=== PATIENT | female | born 1940 | race Caucasian/White ===

== ENCOUNTER 2019-08-22 06:49 | Day surgery (SDC) | payer MEDICARE ==
[~2019-08-22 06:49] MED LIST: FAMOTIDINE 20MG TABLET PO ONE; GENTAMICIN SULFATE IV ONE; MECLIZINE 25 MG TABLET PO ONE; METOCLOPRAMIDE 10 MG TABLET PO ONE; SODIUM CHLORIDE 0.9% IV ONE; VANCOMYCIN 1GM/200ML PREMIX 1 GM/200 ML PIGGYBACK IVPB ONE
[2019-08-22] MEDS ORDERED: HYDROMORPHONE HCL 2 MG/ML VIAL IV ONE (06:50)
[2019-08-22] MEDS ORDERED: 0.9 % SODIUM CHLORIDE 100ML 100 ML IV ONE (06:50)
[2019-08-22] MEDS ORDERED: ROCURONIUM BROMIDE 50MG/5ML VIAL IV ONE (06:50)
[2019-08-22] MEDS ORDERED: FENTANYL PF 100MCG/2ML VIAL IV ONE (06:50)
[2019-08-22] MEDS ORDERED: PROPOFOL 10 MG/ML VIAL IV ONE (06:50)
[2019-08-22] MEDS ORDERED: ONDANSETRON HCL IV 4 MG/2 ML VIAL IVP ONE (06:50)
[2019-08-22] MEDS ORDERED: SUCCINYLCHOLINE 20 MG/ML 10ML IVP ONE (06:50)
[2019-08-22] MEDS ORDERED: MIDAZOLAM HCL 2MG/2ML VIAL IV ONE (06:50)
[2019-08-22] MEDS ORDERED: DEXAMETHASONE 4 MG/ML 1ML VIAL IVP ONE (06:50)
[2019-08-22] MEDS ORDERED: LIDOCAINE 2% MDV (20MG/ML) 20ML VIAL IV ONE (06:50)
[2019-08-22 07:21] LABS: INR 2.5; PROTHROMBIN TIME (PATIENT) 24.8 SECONDS (9.5-12.1)
[2019-08-22 07:52] LABS: ABO GROUP A; ANTIBODY SCREEN NEGATIVE (NEGATIVE); RH TYPE POSITIVE
[2019-08-22] MEDS ORDERED: RINGERS SOLUTION,LACTATED 1,000 ML IV ONE ×2 (08:00→09:42)
[2019-08-22] MEDS ORDERED: BUPIVACAINE 0.5% W/EPI MPF 30 ML VIAL IU ONE (09:42)
[2019-08-22] MEDS ORDERED: TRANEXAMIC ACID 1,000 MG/10 ML ML IU ONE (09:43)
[2019-08-22] MEDS ORDERED: TRANEXAMIC ACID 1,000 MG/10 ML ML IV ONE (09:43)
[2019-08-22] MEDS ORDERED: TRAMADOL HCL 50 MG TABLET PO PRN (10:48)
[2019-08-22] MEDS ORDERED: ACETAMINOPHEN W/ CODEINE 300MG/60MG TABLET PO PRN ×2 (10:48)
[2019-08-22] MEDS ORDERED: ACETAMINOPHEN 325 MG TAB PO PRN (10:48)
[2019-08-22] MEDS ORDERED: DIPHENHYDRAMINE HCL 25 MG CAPSULE PO PRN (10:48)
[2019-08-22] MEDS ORDERED: BISACODYL 10 MG SUPP RC PRN (10:48)
[2019-08-22] MEDS ORDERED: HYDROMORPHONE HCL 2 MG/ML VIAL IM PRN (10:48)
[2019-08-22] MEDS ORDERED: HYDROCODONE/APAP 10/325 TABLET PO PRN (10:48)
[2019-08-22] MEDS ORDERED: ONDANSETRON HCL IV 4 MG/2 ML VIAL IVP PRN (10:48)
[2019-08-22] MEDS ORDERED: NALOXONE 0.4 MG/1 ML VIAL IVP PRN (10:48)
[2019-08-22] MEDS ORDERED: MAGNESIUM HYDROXIDE 30 ML UDC PO PRN (10:48)
[2019-08-22] MEDS ORDERED: ZOLPIDEM TARTRATE 5 MG TABLET PO PRN (10:48)
[2019-08-22] MEDS ORDERED: AL HYDROX/MAG HYDROX 30ML UD PO PRN (10:48)
[2019-08-22] MEDS: HYDROMORPHONE HCL 2 MG/ML VIAL IM PRN ×2 (11:35→11:50)
--- NOTE | 2019-08-22 15:15 | Rehab Evaluation ---
Patient Information - Patient Information Diagnosis: L knee DJD Ordered Treatment: PT Evaluate and Treat Status: Initial Evaluation Surgery: Yes (L TKA) Date of Surgery: 08/22/19 Past Medical/Surgical Hx: PAST MEDICAL/SURGICAL HISTORY Past Surgical History BILAT CATARACTS LEFT EYE SX BILAT CTR C SCOPES PMH - Respiratory Hx Respiratory Disorders Yes Hx Bronchitis Yes Hx Pneumonia Yes: Hx Sleep Apnea Yes Hx of CPAP Yes: BIPAP PT INSTRUCTED TO BRING TO THE HOSPITAL WITH HER Hx of URI Yes: Hx of SOB Yes: WITH A FIB PMH - Cardiovascular Hx Cardiovascular Disorders Yes Hx Abnormal EKG Yes Hx Hypertension Yes: CONTROLLED WITH MEDS Hx Irregular Heartbeat Yes: PAF ON COUMADIN Hx Heart Murmur Yes Exercise Tolerance Poor PMH - Neuro Hx Neurological Disorders Yes Hx Dizziness Yes: LIGHTHEADED BALANCE OFF AT TIMES Hx Neuropathy Yes: FEET Hx Weakness Yes: KNEES PMH - GI Hx Gastrointestinal Disorders Yes Hx Diverticulitis Yes PMH - Hx Genitourinary Disorders No PMH - Endocrine Hx Endocrine Disorders Yes Hx Diabetes Yes: DX'D 2009 Hx of NIDDM Yes Comment: BLOOD SUGARS 140'S PMH - Musculoskeletal Hx Musculoskeletal Disorders Yes Hx Arthritis Yes: KNEES, HANDS PMH - Psych Hx Psychiatric Problems Yes Hx Depression Yes: MILD CONTROLLED WITH MEDS PMH - Hematology/Oncology Hx Hematology/Oncology Yes Disorders Hx Anemia Yes: GETS IRON INFUSIONS A COUPLE OF TIMES A YR UNKNOWN ETIOLOGY Premorbid Status: Detail (The patient was independent with all mobility prior to surgery.) Social History: Detail (The patient lives with spouse in a one story house with a finished basement with 4 steps at the enterance. The bathroom is equipped with a walk in shower, hand held shower, elevated toilet. Grab bars were present in walk in shower but not by toilet. The patient has a walker with wheels.) Precautions: [place], Fall, Other (WBAT on the L LE.) - Time With Patient Total Time Spent With Patient (Min): 30 Treatment Procedures: Detail (Initial Evaluation) Subjective Information - Subjective Information Per Patient (The patient had complaints of L knee pain but did not rate pain using 0-10 pain scale.) Objective Data - Mental Status Patient Orientation: Oriented x3 - Visual Perception Appears within normal limits for therapeutic activities - ROM Not within normal limits (The patient's L knee AROM is limited s/p surgery. All other LE AROM is WNL.) - Strength/Tone Other (The patient's LE strength was not tested s/p surgery however strength was functional.) - Bed Mobility Independent (The patient was independent with supine to and from sit.) - Transfers Independent (The patient initially required min PA of 2 with sit to stand but wa s able to acheive sit to stand independently from commode. The patient required maximal verbal cues to reach back for commode and to push up from the surface. The patient transferred to commode with CG of 1.) - Balance Balance Sitting: Good Balance Standing: Good - Gait Detail (Due to unsteadiness of L LE the patient did ambulate a distance. The patient took one to two steps with use of wheeled walker WBAT on the L LE to and from commode.) Therapy Assessment - Therapy Assessment Detail (The patient was independent with bed mobility and required CG and verbal cues for transfers. The patient ambulated minimally due to unsteadines of L LE. Patient is to ambulate with nursing staff this pm. Will see pt. for one to two sessions for completion of inpt. PT goals.) Problem List - Problem List Physical Therapy Problem List: Detail (Decreased L knee AROM and L LE strength) Goals - Goals Physical Therapy Goals: 1) The patient will be independent with sit to and from stand transfer without verbal cues for safety. 2) The patient will ambulate with front wheeled walker household distances WBAT on L LE independently. 3)The patient will ambulate on stairs with supervison using proper technique. 4) The patient will be independent with TKA HEP. Plan - Plan Physical Therapy Plan: PT 1-2 sessions for gait training on levels and stairs.
--- NOTE | 2019-08-22 15:23 | Rehab Evaluation ---
Patient Information - Patient Information Diagnosis: L knee DJD Ordered Treatment: OT Evaluate and Treat Status: Initial Evaluation Surgery: Yes (L TKA) Date of Surgery: 08/22/19 Past Medical/Surgical Hx: PAST MEDICAL/SURGICAL HISTORY Past Surgical History BILAT CATARACTS LEFT EYE SX BILAT CTR C SCOPES PMH - Respiratory Hx Respiratory Disorders Yes Hx Bronchitis Yes Hx Pneumonia Yes: Hx Sleep Apnea Yes Hx of CPAP Yes: BIPAP PT INSTRUCTED TO BRING TO THE HOSPITAL WITH HER Hx of URI Yes: Hx of SOB Yes: WITH A FIB PMH - Cardiovascular Hx Cardiovascular Disorders Yes Hx Abnormal EKG Yes Hx Hypertension Yes: CONTROLLED WITH MEDS Hx Irregular Heartbeat Yes: PAF ON COUMADIN Hx Heart Murmur Yes Exercise Tolerance Poor PMH - Neuro Hx Neurological Disorders Yes Hx Dizziness Yes: LIGHTHEADED BALANCE OFF AT TIMES Hx Neuropathy Yes: FEET Hx Weakness Yes: KNEES PMH - GI Hx Gastrointestinal Disorders Yes Hx Diverticulitis Yes PMH - Hx Genitourinary Disorders No PMH - Endocrine Hx Endocrine Disorders Yes Hx Diabetes Yes: DX'D 2009 Hx of NIDDM Yes Comment: BLOOD SUGARS 140'S PMH - Musculoskeletal Hx Musculoskeletal Disorders Yes Hx Arthritis Yes: KNEES, HANDS PMH - Psych Hx Psychiatric Problems Yes Hx Depression Yes: MILD CONTROLLED WITH MEDS PMH - Hematology/Oncology Hx Hematology/Oncology Yes Disorders Hx Anemia Yes: GETS IRON INFUSIONS A COUPLE OF TIMES A YR UNKNOWN ETIOLOGY Premorbid Status: Detail (The patient was independent with all ADLs and fxl mobility prior to surgery and was occasionally using a FWW.) Social History: Detail (The patient lives with spouse in a one story house with a finished basement and 4 steps at the entrance with wide bilateral hand rails. Her bedroom and bath are on the main level and she has a chair lift to the downstairs. The bathroom is equipped with a walk in shower, hand held shower, elevated toilet. Grab bars are present in walk in shower but not by toilet. The patient has 2 front wheeled walkers.) Precautions: [place], Fall, Other (WBAT on the L LE.) - Time With Patient Total Time Spent With Patient (Min): 42 (partial co-eval w/ PT d/t Pt's current low fxl endurance and for Pt's safety d/t unclear TF status s/p L TKA) Treatment Procedures: Detail (1 OT eval, 1 self-care) Subjective Information - Subjective Information Per Patient (Pt states, "my will help me when I get home.") Objective Data - Pain Pain Present: Yes Pain Scale Used: Numeric (1 - 10) (3/10 during fxl mvmt, subsides w/ rest) - Mental Status Patient Orientation: Oriented x3 - Visual Perception Appears within normal limits for therapeutic activities - ROM Within normal limits (B UEs) - Strength/Tone Within normal limits (B UEs) - Coordination Appears within normal limits for therapeutic activities - Bed Mobility Needs Assist (supine to/from EOB w/ MIN assist of 1) - Transfers Needs Assist (MIN assist of 2 for stand pivot TF EOB to/from BSC, Pt able to take small steps with bilat support on walker, unsteady) - Balance Balance Sitting: Fair Balance Standing: Fair - Sensation Intact - Gait Detail (stand pivot only this sessions, see TFs) - ADL's/IADL's Detail (MAX assist to don/doff socks elevated HOB in supine d/t knee pain w/ reaching to feet; MAX assist to pull briefs to/from knee level in standing while Pt bilat support on walker and MIN assist for static standing; assist for gown mgmt throughout session. Educated and demo'd use of sock aide and cooperative education director to don/doff socks and pants, Pt verbalized understanding. Also explained safe FWW use and provided handouts for modified dressing and safe walker use.) Therapy Assessment - Therapy Assessment Detail (Pt currently requiring assist for all ADLs and fxl TFs. Will benefit from further OT to practice and assess safety and independence w/ ADLs prior to return home w/ spouse.) Patient Education - Patient Education Teaching Topic: Equipment Use, Other (modified safety and dressing techniques, walker use, etc.) Response: Return Demonstration, Reinforcement Needed, Verbalize Understanding Teaching Method: Discussion, Demonstration Teaching Recipient: Patient, Family Barriers To Learning: None Problem List - Problem List Occupational Therapy Problem List: Detail (1. Pt requires MAX assist for LB dressing 2. Pt requires MIN assist for stand pivot TFs 3. Pt demos decreased general safety awareness and use of FWW) Goals - Goals Occupational Therapy Goals: 1. Pt will be MOD I for LB dressing vs. spouse will demo ability to assist Pt as needed for LB dressing. 2. Pt will demo safety and MOD I with fxl mob to bathroom 3. Pt will demo safety awareness grossly incl. w/ use of FWW. Prognosis - Prognosis Good Plan - Plan Occupational Therapy Plan: Pt may benefit from 1 more OT session pending functional progress to address goals.
[2019-08-22] MEDS: METFORMIN 500 MG TABLET PO SCH ×2 (15:38→22:54)
[2019-08-22] MEDS: HYDROCODONE/APAP 10/325 TABLET PO PRN ×2 (15:39→19:15)
[2019-08-22] MEDS: PRAMIPEXOLE DI-HCL 0.25 MG TABLET PO SCH ×2 (19:10→22:40)
[2019-08-22] MEDS: VANCOMYCIN 1GM/200ML PREMIX 1 GM/200 ML PIGGYBACK IVPB SCH (21:00)
[2019-08-22] MEDS ORDERED: FUROSEMIDE 20 MG TABLET PO SCH (22:00)
[2019-08-22] MEDS ORDERED: SIMVASTATIN 10MG TABLET PO SCH (22:00)
[2019-08-22] MEDS ORDERED: WARFARIN 5 MG TAB PO SCH (22:00)
[2019-08-22] MEDS ORDERED: LOSARTAN POTASSIUM 25 MG TABLET PO SCH (22:00)
[2019-08-22] MEDS: OPTH OPTH SCH ×2 (22:52)
[2019-08-22] MEDS: COMBIGAN OPTH SCH (22:52)
[2019-08-22] MEDS: PATANOL 0.1% OPTH SCH (22:52)
[2019-08-22] MEDS: POTASSIUM CHLORIDE/D5-0.9%NACL 20 MEQ/1,000 ML BAG IV SCH (22:52)
[2019-08-22] MEDS: SYSTANE OPTH OPTH SCH (22:52)
[2019-08-22] MEDS: DOCUSATE SODIUM 100 MG CAPSULE PO SCH (22:55)
[2019-08-22] MEDS: GLIMEPIRIDE 2 MG TABLET PO SCH (22:58)
[2019-08-23] MEDS: HYDROCODONE/APAP 10/325 TABLET PO PRN ×3 (01:09→11:49)
[2019-08-23 06:43] LABS: HEMATOCRIT 34.3 % (35.0-47.0); HEMOGLOBIN 9.9 gm/dl (11.6-16.0)
[2019-08-23 06:55] LABS: INR 3.3; PROTHROMBIN TIME (PATIENT) 32.1 SECONDS (9.5-12.1)
[2019-08-23] MEDS ORDERED: PANTOPRAZOLE SODIUM 40 MG TABLET PO SCH (07:00)
[2019-08-23 07:03] LABS: BLOOD UREA NITROGEN 10 mg/dL (8-23); CREATININE 0.6 mg/dL (0.5-0.9); EST GLOMERULAR FILTRATION RATE > 60 mL/min; GLUCOSE,RANDOM 213 mg/dL (74-109)
--- NOTE | 2019-08-23 08:19 | Occupational Therapy Tx Note ---
Occupational Therapy Tx Note - Treatment Note Tolerated: Good Total Time Spent With Patient: 20 (ADL) Occupational Therapy Treatment Note: Detail (S: Pt up in chair, feeling better today. O: Reviewed modified LE dressing techniques and pt was able to demonstrate donning of cassandra sock (with assist, pants and slip on shoes). Reviewed kitchen and shower safety and modifications, pt verbalized understanding. Pt amb 5 feet to chair with walker and supervision. A: Pt is Ind with modified LE dressing techniques) Occupational Therapy Problem List: Detail (1. Pt requires MAX assist for LB dressing 2. Pt requires MIN assist for stand pivot TFs 3. Pt demos decreased general safety awareness and use of FWW) Occupational Therapy Goals: Goals met: 1. Pt will be MOD I for LB dressing vs. spouse will demo ability to assist Pt as needed for LB dressing. 2. Pt will demo safety and MOD I with fxl mob to bathroom 3. Pt will demo safety awareness grossly incl. w/ use of FWW. Prognosis: Good Occupational Therapy Plan: Pt is discharged from IP OT at this time. Thank you for this referral.
[2019-08-23] MEDS: VANCOMYCIN 1GM/200ML PREMIX 1 GM/200 ML PIGGYBACK IVPB SCH (08:39)
[2019-08-23] MEDS: METFORMIN 500 MG TABLET PO SCH (09:59)
[2019-08-23] MEDS ORDERED: DILTIAZEM 180MG CR CAPSULE PO SCH (10:00)
[2019-08-23] MEDS ORDERED: FERROUS SULFATE 325 MG TAB PO SCH (10:00)
[2019-08-23] MEDS ORDERED: POTASSIUM CHLORIDE 10 MEQ TAB PO SCH (10:00)
[2019-08-23] MEDS ORDERED: PAROXETINE HCL 10 MG TABLET PO SCH (10:00)
[2019-08-23] MEDS: GLIMEPIRIDE 2 MG TABLET PO SCH (10:00)
[2019-08-23] MEDS: DOCUSATE SODIUM 100 MG CAPSULE PO SCH (10:01)
[2019-08-23] MEDS: PRAMIPEXOLE DI-HCL 0.25 MG TABLET PO SCH (10:03)
[2019-08-23] MEDS: OPTH OPTH SCH ×2 (10:08→10:10)
[2019-08-23] MEDS: COMBIGAN OPTH SCH (10:08)
[2019-08-23] MEDS: SYSTANE OPTH OPTH SCH (10:10)
[2019-08-23] MEDS: PATANOL 0.1% OPTH SCH (10:10)
[2019-08-23] MEDS: POTASSIUM CHLORIDE/D5-0.9%NACL 20 MEQ/1,000 ML BAG IV SCH ×2 (10:12→10:13)
--- NOTE | 2019-08-23 11:08 | Physical Therapy Tx Note ---
Physical Therapy Tx Note - Treatment Note Tolerated: Good Total Time Spent With Patient: 35 Physical Therapy Tx Note: Detail (Patient was seated in bathroom upon FUEL CELL BINDER arrival. Patient required min assist with sit to stand transfer from toilet. Patient states her toilets are elevated at her home. Patient ambulated 240 feet with wheeled walker SBA x1. Patient descended and ascended 3 steps with using stairwell railing and walker. Patient donned shirt independently while standing at walker. Patient transferred stand to and from sit SBA x1. Patient ambulated 5 feet with wheeled walker. Patient transferred stand to sit SBA x1. Patient transferred sit to supine independently. Patient scooted over in bed independently. Patient performed the following exercises supine in bed x5-10 reps each: quad sets, glut squeezes, ankle pumps, heel slides, SLR, and hamst ring sets. Patient tolerated treatment well. Patient displays good understanding of ambulation with walker, stair climbing, and HEP. Patient was left reclined in bed with call light within reach. Patient discharged from inpatient PT at this time as all goals are met.) Physical Therapy Problem List: Detail (Decreased L knee AROM and L LE strength) Physical Therapy Goals: 1) The patient will be independent with sit to and from stand transfer without verbal cues for safety. Met. 2) The patient will ambulate with front wheeled walker household distances WBAT on L LE independently. Met. 3)The patient will ambulate on stairs with supervison using proper technique. Met. 4) The patient will be independent with TKA HEP. Met. Prognosis: Good Physical Therapy Plan: Patient discharged from inpatient PT at this time as all goals are met.
--- NOTE | 2019-08-23 13:01 | Operative Note ---
DATE OF SURGERY: 08/22/2019 PREOPERATIVE DIAGNOSIS: End-stage arthrosis of the left knee. POSTOPERATIVE DIAGNOSIS: End-stage arthrosis of the left knee. OPERATION: Cemented left total knee arthroplasty using [employer] components with a size 4 cobalt chrome femur, a size 3 stemmed tibia baseplate, a 9 mm lipped tibial insert, and a 32 mm all-plastic patella. STAFF SURGEON: Bautista Gonzalez MD ANESTHESIA: General. PREPARATION: Chloraprep. INDIVIDUAL CONSIDERATIONS: None. PROCEDURE: The patient was taken to the operating room, placed supine on the operating room table. She had a successful induction of a general anesthetic. The left lower extremity was prepped and draped in the usual fashion. The patient had a midline approach to the knee. The limb was elevated and tourniquet was inflated to 275 mmHg. Sharp dissection carried down through skin and subcutaneous tissue. Small veins were coagulated with a Bovie. A medial arthrotomy was performed. The patella was everted and the knee was flexed. The patient had exposed bone with bone loss primarily in medial and some in the patellofemoral compartment. Fat pad was resected, ACL was sacrificed, and provisional anterior meniscectomies were performed. The capsule was released from the medial proximal tibia. The pouch and both gutters had almost a hemosiderin-appearing synovitis. 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 After putting the femoral guide for the initial transverse cut, the initial transverse cut was then made. The skin guide was placed in 3 degrees of external rotation for the anterior and posterior cut. It was found that a size 4 would be appropriate. The anterior and posterior cuts followed by chamfer cuts were made. Osteophytes removed, and a size 4 trial was placed and found to fit well. The tibia was brought forward, and the remainder of the meniscal remnants removed with a Bovie. The extraarticular tibial cutting jig was placed. It was cut in neutral with a 3-degree AP slope. It was set for a 9 mm resection keyed off the high lateral side and secured with pins. When cutting the tibia, care was taken to preserve the PCL insertion on the tibia. After removing large medial osteophytes, I could fit a size 3. It was adjusted for rotation and secured with pins. With a 9 mm insert trial and femoral trial, there was excellent motion and stability. Ligamentous balance and rotation alignment were thought to be normal. Femoral automatic pilot mechanic holes were impacted and the tibial keel stamp was impacted, and these trial components were removed. The patient had just sufficient patella for a resection. I resected about 7-8 mm of bone compensating for cartilage loss and leaving me with at least 13 mm of bone for an implant. I was able to fit a 32 implant, and the 3 automatic pilot mechanic holes were drilled. The knee was then thoroughly irrigated out to remove any visual or palpable debris. The tourniquet was let down, hemostasis was obtained with a Bovie, and then final irrigation. Bony surfaces were dried with a CarboJet. A size 3 stemmed tibia baseplate was cemented into place followed by impaction of the 9 mm lipped tibial insert followed by cementing in the size 4 cobalt chrome femur followed by cementing in the 32 mm all-plastic patella. The implant surfaces were compressed, excess cement was removed. After the cement had set, there was excellent motion and stability. Ligamentous balance, rotation alignment, and patellofemoral tracking were absolutely normal. No lateral release was required. Again thorough irrigation. Tourniquet was let down. Hemostasis was obtained with a Bovie. The periosteum, capsule, subcu, and skin were infiltrated with 30 mL of 0.5% Marcaine with epinephrine. The capsule was then closed with a running #2 quill, subcu was closed in layers with running 0 quill, skin was closed with sim. Then 1 g of tranexamic acid was mixed with 30 mL of saline and injected into the knee through a sterile 18-gauge needle, and a sterile bulky compressive DENYS-type dressing was applied. The patient tolerated the procedure well. Needle and sponge counts were correct. Estimated blood loss was minimal, and she was taken back to recovery in good condition. There were no complications. APOLINAR
== END 2019-08-23 13:10 | disposition home health service (06) ==
LOC: SUR 06:49 → MEDSURG 12:40 → SUR 08-23 13:10
PROVIDERS: ATTEND Orthopaedic Surgery
DX: M17.12 Unilateral primary osteoarthritis, left knee (principal); I48.91 Unspecified atrial fibrillation; Z79.01 Long term (current) use of anticoagulants; D64.9 Anemia, unspecified; I10 Essential (primary) hypertension; E66.9 Obesity, unspecified; E11.9 Type 2 diabetes mellitus without complications; H40.9 Unspecified glaucoma; E78.00 Pure hypercholesterolemia, unspecified; K21.9 Gastro-esophageal reflux disease without esophagitis; G25.81 Restless legs syndrome; G62.9 Polyneuropathy, unspecified
CPT/HCPCS: 76942; 80048; 85014; 85018; 85610; 86850; 86900; 86901; 94010; 94760; C1776; J0330; J1580; J2405; J3370; J3480; J7120